=== PATIENT | female | born 1975 | race Caucasian/White ===

== ENCOUNTER → 2024-07-10 | Outpatient (CLI) | payer BC, SELFPAY ==
--- NOTE | 2024-07-10 | XR_ITS ---
Examination: Tibia-Fibula, left , 2 views Technique: Tibia-fibula AP lateral 2 views Date and time of exam: July 10, 2024, 0641 hrs. Indications: Injury to the lower leg 2 days ago, lower leg pain. Findings: Moderate osteopenia. No fracture or dislocation. Impression: No fracture or dislocation.
== END | disposition home or self-care (01) ==
PROVIDERS: PCP Registered Nurse; Referring Provider Physician Assistant; Visit Provider Physician Assistant
DX: S89.92XA Unspecified injury of left lower leg, initial encounter (principal); X58.XXXA Exposure to other specified factors, initial encounter
CPT/HCPCS: 73590